=== PATIENT | male | born 1965 | race Caucasian/White ===

== ENCOUNTER → 2020-09-24 14:35 | Outpatient (BNVA) | payer OTHER, SELFPAY | PROVIDERS: PCP Internal Medicine; Visit Provider Urology ==

== ENCOUNTER → 2020-11-04 08:47 | Outpatient (BNVA) | payer OTHER, SELFPAY | PROVIDERS: PCP Internal Medicine; Visit Provider Urology | DX: N40.1 Benign prostatic hyperplasia with lower urinary tract symptoms (principal); N13.8 Other obstructive and reflux uropathy; N52.9 Male erectile dysfunction, unspecified; N41.1 Chronic prostatitis | CPT/HCPCS: 51798 ==

== ENCOUNTER → 2021-05-14 09:47 | Outpatient (BNVA) | payer OTHER, SELFPAY | PROVIDERS: PCP Internal Medicine; Visit Provider Urology | DX: N40.1 Benign prostatic hyperplasia with lower urinary tract symptoms (principal); N13.8 Other obstructive and reflux uropathy; N52.9 Male erectile dysfunction, unspecified | CPT/HCPCS: 51798 ==

== ENCOUNTER 2022-05-25 09:26 | Outpatient (REF) | payer OTHER, SELFPAY ==
[2022-05-25 17:51] LABS: Urine Cytology See Pathology rpt
== END 2022-05-25 09:27 | disposition home or self-care (01) ==
LOC: HO.LAB 09:26
PROVIDERS: PCP Internal Medicine; Visit Provider Urology
DX: R31.29 Other microscopic hematuria (principal); N40.1 Benign prostatic hyperplasia with lower urinary tract symptoms; N13.8 Other obstructive and reflux uropathy; N52.9 Male erectile dysfunction, unspecified; Z79.899 Other long term (current) drug therapy; Z79.84 Long term (current) use of oral hypoglycemic drugs
CPT/HCPCS: 51798; 88112

== ENCOUNTER 2022-11-26 10:15 | Outpatient (AMB) | payer OTHER, SELFPAY ==
--- NOTE | 2022-11-26 11:12 | A.OFFVIS_ITS ---
Intake Intake Visit Reasons: 6M/PSA(SET) Intake Note: Patient is Present for Follow Up PSA/PVR Urology Medication: Tadalafil Antibiotic Allergies: None Blood Thinners: None Pharmacy: [facility] PVR: 0ml Allergies No Known Allergies Allergy (Verified 11/26/22 11:13) Medication List - Last Reconciled 11/26/22 by Kristofer Carlos MD atorvastatin 20 mg PO DAILY fluticasone propionate 110 mcg/actuation (Flovent HFA) 0 mcg inhalation metformin 500 mg PO DAILY semaglutide (Ozempic) mg subcut tadalafil 5 mg PO DAILY PRN 90 days HPI HPI Comments History of Present Illness Details Jorge is a very pleasant male. He is a patient of Dr. Henning. He is seen for the following urologic issues. - prostatitis - bladder outlet obstruction - erectile dysfunction PVR 0 cc Doing well with current medications Continues with tadalafil every other day The PDE5 inhibitors also assist with prostate relaxation and been shown to reduce HbA1c by 0.2-0.3 in diabetics due to improve localize blood flow Lower urinary tract symptoms Progressive slow weakness of stream Background metabolic syndrome - on low-dose metformin Improvement with tadalafil Prostatitis/CPPS:? 12/15 PSA 3.5 ?12/16 1.6. - 09/17 1.9, 11/19 2.4 ? They present for ?doing well ?- prostatitis stable ?- encouraged increased water intake.? He is currently being treated with?observation.? Symptoms have been present?for a number of weeks.? Testing included?06/15 Microgen - E.Coli with fluroquinolone resisntance.? Associated conditions include? STDs ?No ? nephrolithiasis ?No ? diabetes ?No ? inflammatory bowel disease ?No ? diverticulitis ?No ? radiation to the pelvis ?No ? surgery ?none ? Prostatitis was diagnosed?05/15 a week ago.? Type of prostatitis?I - acute bacterial.? PFSH Medical History H/O urinary retention Acute prostatitis Hyperlipidemia Social History Patient Tobacco Use Status: Never used Tobacco Review of Systems Const Denies chills and Denies fever(s) Card Reports no additional complaints and Denies syncope Resp Denies cough GI Denies abdominal pain and Denies heartburn Reports as per HPI and Denies change in libido Neuro Denies syncope Psych Denies change in libido Endo Denies change in libido Physical Exam Const General: cooperative, healthy appearing, comfortable and no acute distress Orientation/consciousness: patient oriented x3 HEENT Face and sinus: Yes normal facial exam Mouth: moist mucous membranes Neck Neck: Yes normal visual inspection, Yes full ROM and Yes trachea midline Chest Chest palpation & inspection: normal inspection of the chest Resp Effort & Inspection: normal respiratory effort, able to speak in complete sentences and no respiratory distress GI Inspection: Yes normal to inspection Back/Spine/Pelvis Cervical Spine: normal cervical lordosis Thoracic/Lumbar Spine: thoracic and lumbar spine normal to inspection Skin General skin exam: no rashes or lesions noted Neuro General: patient oriented x3, gait normal, tone normal and moves all extremities Extrem General: Yes normal to inspection and Yes capillary refill normal Office Procedures Post Void Residual Post Residual Void Post Void Residual (PVR): 0 09209-Fhcm Void Residual by ultrasound Results AMB Urinalysis, Automated UA Leukoctes 0 Marlon/uL Last Edit by GERA Mccall on 11/26/22 11:20 UA Nitrite Negative Last Edit by GERA Mccall on 11/26/22 11:20 UA Urobilinogen 0.2 mg/dL Last Edit by GERA Mccall on 11/26/22 11:2 0 UA Protein 0 mg/dL Last Edit by GERA Mccall on 11/26/22 11:20 UA pH 6.0 Last Edit by GERA Mccall on 11/26/22 11:20 UA Blood 10 David/uL Last Edit by Shiloh Gilmore A on 11/26/22 11:20 UA Specific [place] 1.010 Last Edit by Shiloh Gilmore A on 11/26/22 11: 20 UA Ketone Negative Last Edit by Shiloh Gilmore, RMA on 11/26/22 11:20 UA Bilirubin 0 mg/dL Last Edit by Sihloh Gilmore A on 11/26/22 11:20 UA Glucose 0 mg/dL Last Edit by Shiloh Gilmore A on 11/26/22 11:20 Results Reviewed Results Reviewed: Laboratory Last Values Urine pH (Auto) 6.0 11/26/22 11:04 Specific [place] (Auto) 1.010 11/26/22 11:04 Urine Protein (Auto) 0 mg/dL 11/26/22 11:04 Glucose (UA)(Auto) 0 mg/dL 11/26/22 11:04 Urine Ketones (Auto) Negative 11/26/22 11:04 Urine Blood (Auto) 10 David/uL 11/26/22 11:04 Urine Nitrite (Auto) Negative 11/26/22 11:04 Urine Bilirubin (Auto) 0 mg/dL 11/26/22 11:04 Urine Urobilinogen (Auto) 0.2 mg/dL 11/26/22 11:04 Leukocyte Esterase (Auto) 0 Marlon/uL 11/26/22 11:04 Assessment & Plan Assessment & Plan (1) Prostatitis, chronic: Code(s): N41.1 - Chronic prostatitis (2) Erectile dysfunction: Code(s): N52.9 - Male erectile dysfunction, unspecified (3) BPH w urinary obs/LUTS: Code(s): N40.1 - Benign prostatic hyperplasia with lower urinary tract symptoms; N13.8 - Other obstructive and reflux uropathy Plan Six month Orders: Orders AMB Post Void Residual by ultrasound Today N13.8 - Other obstructive and reflux uropathy, N40.1 - Benign prostatic hyperplasia with lower urinary tract symptoms AMB Urinalysis Automated Today Z13.9 - Encounter for screening, unspecified AMB Post Void Residual by ultrasound Today N13.8 - Other obstructive and reflux uropathy, N40.1 - Benign prostatic hyperplasia with lower urinary tract symptoms Patient Instructions: Imaging studies, laboratory and physical exam results were discussed and reviewed in detail. No major barriers to patient understanding were identified. An opportunity to ask questions regarding the treatment plan was provided. All questions were answered. The patient expressed understanding and agreement with the above treatment plan. The patient is aware they should contact our office by phone for worsening of their current condition or the appearance of new urologic symptoms. Compliance is encouraged with any medications and followup testing that is ordered. It is a privilege to participate in the urologic care of your patient. If you have any questions or concerns regarding treatment for the above conditions, or other urologic issues, please do not hesitate to contact me. The office telephone contact is [phone]. This note is constructed using voice recognition software. While every effort has been made to ensure accuracy auto electrical technician errors may have been included. Yours sincerely, Dr Kristofer Carlos MD, [facility] - Urology Providers of Expert, Compassionate Care for the Genitourinary System Coding Level of Care Code Est Pt Level 3 (88007) Diagnoses Prostatitis, chronic N41.1 Erectile dysfunction N52.9 BPH w urinary obs/LUTS N40.1; N13.8 CPT Codes Post Residual Void - PVR CPT Code: 97289-Obuh Void Residual by ultrasound ( [id number])
== END 2022-11-26 11:39 | disposition home or self-care (01) ==
PROVIDERS: PCP Internal Medicine; Visit Provider Urology
DX: N41.1 Chronic prostatitis (principal); N52.9 Male erectile dysfunction, unspecified; N40.1 Benign prostatic hyperplasia with lower urinary tract symptoms; N13.8 Other obstructive and reflux uropathy; Z13.9 Encounter for screening, unspecified
CPT/HCPCS: 99213

== ENCOUNTER → 2022-11-26 10:15 | Outpatient (BNVA) | payer OTHER, SELFPAY | PROVIDERS: Visit Provider Urology | DX: N41.1 Chronic prostatitis (principal); N52.9 Male erectile dysfunction, unspecified; N40.1 Benign prostatic hyperplasia with lower urinary tract symptoms; N13.8 Other obstructive and reflux uropathy | CPT/HCPCS: 51798; 81003 ==